=== PATIENT | female | born 1990 | race Caucasian/White ===

== ENCOUNTER → 2018-05-19 08:10 | Outpatient (CLI) | payer OTHER, MEDICAID | END | disposition home or self-care (01) | LOC: D.NM 08:10 | DX: R10.9 Unspecified abdominal pain (principal) ==

== ENCOUNTER 2019-11-09 05:05 | Day surgery (SDC) | payer MEDICAID ==
[2019-11-06 10:36] LABS: BASOPHILS 0.9 % (0-2); HEMATOCRIT 41.1 % (36.0-48.0); IMMATURE GRANULOCYTES 0.3 % (0-5); LYMPHOCYTES 19.2 % (15-50); MCH 31.9 pg (26.0-34.0); MCHC 34.1 g/dL (31.0-37.0); MCV 93.6 fL (80.0-100.0); MEAN PLATELET VOLUME 9.6 fL (7.4-10.4); MONOCYTES 8.2 % (2-11); NEUTROPHILS 67.4 % (40-80); PLATELET COUNT 265 10x3/uL (130-400); RBC 4.39 10x6/uL (4.00-5.40); RDW 12.9 % (11.5-14.5); WBC 6.5 10x3/uL (4.8-10.8)
[2019-11-06 10:42] LABS: CALC OSMOLALITY 275 mosm/kg (275-300); CALCIUM 9.7 mg/dL (8.5-10.1); CARBON DIOXIDE 28.3 mmol/L (21.0-32.0); CHLORIDE - SERUM 105 mmol/L (98-107); CREATININE - SERUM 0.6 mg/dL (0.6-1.3); GLUCOSE 96 mg/dL (74-106); POTASSIUM - SERUM 4.1 mmol/L (3.5-5.1); SODIUM 139 mmol/L (136-145); UREA NITROGEN 8 mg/dL (7-18); eGFR NON AFRICAN AMERICAN > 90 mL/min (90-120)
[2019-11-09] VITALS (9 sets, daily range): BP systolic 100–136; BP diastolic 58–86; Ht 160 cm; Wt 83.6 kg
[~2019-11-09] VITALS: Ht 160 cm; Wt 83.6 kg
[2019-11-09 06:02] LABS: HCG URINE NEGATIVE (NEGATIVE)
--- NOTE | 2019-11-09 09:01 | NUR ---
LIZZ REF [id number] LOT# [id number] EXP 09/28/2023
--- NOTE | 2019-11-09 10:18 | NUR ---
pt received from legal recovery specialist. pt in stable condition. scd's on, iv placed on pump at 125ml/hr, pt c/o abd. pain 06/10. pt awake & alert. vss at this time, scant vaginal bleeding, 3 abd. incisions one in naval, one in left lower abd., & one in right lower abd, dressing dry & intact over lower abd.
--- NOTE | 2019-11-09 10:35 | NUR ---
pt awake & alert. vss at this time.
--- NOTE | 2019-11-09 10:35 | NUR ---
pt's family to room at this time. pt asking for water. pt given water to drink.
--- NOTE | 2019-11-09 10:49 | NUR ---
dilaudid 2mg iv given at this time see emar.
--- NOTE | 2019-11-09 10:55 | NUR ---
pt awake & alert. family in room w/ pt at this time.
--- NOTE | 2019-11-09 11:07 | OP ---
PATIENT NAME: KAYCE FLORES MEDICAL RECORD: [id number] :90 LOCATION:[facility] .[id number] ADMISSION DATE: SURGEON: JIMMY BUSBY MD DATE OF OPERATION: 11/09/2019 PREOPERATIVE DIAGNOSES: 1. Dysmenorrhea. 2. Dysfunctional uterine bleeding. POSTOPERATIVE DIAGNOSES: 1. Dysmenorrhea. 2. Dysfunctional uterine bleeding. 3. Severe pelvic adhesions. PROCEDURES PERFORMED: 1. Diagnostic laparoscopy. 2. Lysis of adhesions. 3. Subtotal hysterectomy. 4. Mini laparotomy. 5. Bilateral salpingectomy. PRIMARY SURGEON: Jimmy Busby MD WIG STYLIST: Garrett ASSEMBLY LINE DRIVER: Kenan Pastor ANESTHESIOLOGIST: Michael Montoya MD ANESTHESIA: General. FINDINGS: Uterus is enlarged and adhesed from the fundus to the lower segment to the anterior abdominal wall. Both ovaries have smooth capsule appearance. Tubes were unremarkable. The rest of the abdominal anatomy that are visualized is unremarkable. SPECIMENS REMOVED: 1. Uterus without cervix. 2. Bilateral tubes and segments. SPECIMEN DISPOSITION: All specimens to pathology. ESTIMATED BLOOD LOSS: Less than or equal to 125 cc. FLUIDS: 1400 cc of lactated Ringer's. URINE OUTPUT: 200 cc of clear urine. COMPLICATIONS: None. DRAINS: Laicia to gravity, discontinued in the operating room. INDICATIONS: The patient is a 29-year-old female with undesired fertility. The patient has intense pain with cycles that are impacting quality of life. The patient also suffers from dyspareunia and regular heavy menstrual flows. The OPERATIVE REPORT [id number] KAYCE FLORES patient was consented for diagnostic laparoscopy, subtotal hysterectomy. Risks and benefits of subtotal hysterectomy have been described as well as the limitations. DESCRIPTION OF PROCEDURE: After informed consent was assured, the patient was taken to the operating room where anesthetic was obtained. The patient was supine on the table and a Alicia catheter has been started. The patient was now prepped and draped. An incision was made at the umbilicus to accommodate a 5-mm trocar, which was inserted without difficulty and pneumoperitoneum developed. Accessory ports were now placed in the right and left lower quadrant of the abdomen with the patient in Trendelenburg position. With the bowel swept free of the pelvis, the right tube was elevated and using a Thunderbeat coagulation cutter, the attachment of the tube to the adnexa was compressed, coagulated, and . This dissection was carried out over the round ligament. The dense adhesions of the uterus to the abdominal wall were now taken down superiorly and inferiorly. This was performed all the way to the level of the internal os. The bladder reflection has been identified. Attention was now directed to the left side. The left tube was elevated and again the attachment of the tube to the adnexa was compressed, coagulated, and . The dissection was carried out over the round ligament and uteroovarian ligaments of the left side. The broad ligament was dissected and the vessels on the left side skeletonized. Attention was directed back anteriorly and the adhesions continued to be taken down. Once the tissues had been mobilized off the surface of the uterus and the bladder flap has been identified, the vessels of the left side were compressed, coagulated, and now . Attention was directed back to the right where the dissection of the uterus begins off the cervix. Using a reverse cone technique, the uterus was removed from the cervix starting from the right completing on the left. Once the removal of the uterus was completed, it was placed out of the visual field and the endocervical canal cauterized. Inspection of the vaginal cuff revealed some bleeding vessels at the posterior peritoneum and these were grasped and desiccated. The uterus was grasped with a tenaculum and now brought back into the lower pelvis. The pneumoperitoneum was released and a small incision was made in the center of the old Pfannenstiel scars. This incision was carried down to the underlying layer of the fascia, which was opened in the midline and extended laterally. The rectus bellies were now and the peritoneum entered. Uterus was brought to the incision and removed. The fascia was now closed with a running stitch of Vicryl. The subcutaneous tissue was inspected and found to be hemostatic. Reestablishment of the pneumoperitoneum and with the patient back in Trendelenburg position, the operative field was visualized and covered with Mark. The pneumoperitoneum was released as the trocars were removed. All sites closed with a subcuticular stitch. Sponge, lap, needle counts were correct times 2. TRANSINT:[id number] Voice Confirmation ID: [id number] DOCUMENT ID: [id number] JIMMY BUSBY MD at 1100 CC: [id number] DICTATION DATE: 11/09/19927 EQUIPMENT ENGINEERING TECHNICIAN: 11/09/1950 [facility] [address] [facility] [place]
--- NOTE | 2019-11-09 11:15 | NUR ---
DR. BUSBY IN ROOM W/ PT.
--- NOTE | 2019-11-09 11:25 | NUR ---
PT O2 SATS 93-94% PT PLACED ON 2L OF 02 AT THIS TIME. O2 SATS 965 AFTER BEING PLACED ON NC AT 2L.
--- NOTE | 2019-11-09 11:30 | NUR ---
DR. BUSBY ORDERED IV MAYBE SALINE LOCKED AT THIS TIME. PT'S IV SL AT THIS TIME.
--- NOTE | 2019-11-09 11:30 | NUR ---
DR. BUSBY CALLED RN ADVISED OF [facility]. NEW ORDER FROM DR. BUSBY GIVE 4MG OF ZOFRAN.
--- NOTE | 2019-11-09 11:42 | NUR ---
PT C/O OF NAUSEA. ZOFRAN 4MG GIVEN.
--- NOTE | 2019-11-09 13:00 | NUR ---
PT REQUEST TO GET OUT OF BED AT THIS TIME. PT AMBULATED TO RR W/ STEADY GAIT & ABLE TO VOID W/O DIFFICULTY.
--- NOTE | 2019-11-09 13:05 | NUR ---
PT WALKING IN ALANIZ W/ STEADY GAIT. PT STATED PAIN IS A 2/10 "TOLERABLE."
--- NOTE | 2019-11-09 13:35 | NUR ---
PT SITTING UP ON EDGE OF BED EATING JELLO. PT STATES "I WANT TO GO HOME. i FEEL GOOD." PT ADVISED RN WILL NOTIFIED DR. BUSBY. PT VOICES UNDERSTANDING.
--- NOTE | 2019-11-09 13:50 | NUR ---
DR. BUSBY NOTIFIED OF PT'S DESIRE TO BE D/C'ED. VERBAL ORDER MAY D/C PT HOME AT THIS TIME.
--- NOTE | 2019-11-09 14:47 | NUR ---
PT C/O ABD. PAIN PAIN MEDS GIVEN SEE EMAR.
--- NOTE | 2019-11-09 14:50 | NUR ---
WRITTEN & VERBAL D/C INSTRUCTIONS REVIEWED W/ PT. PT VOICES UNDERSTNADING OF ALL INSTRUCTIONS, MEDICATIONS, RX'S GIVEN TO PT AT THIS TIME. PT STATES F/U W/ DR. BUSBY 11/26 @7789.
--- NOTE | 2019-11-09 15:05 | NUR ---
PT D/C'ED VIA WHEELCHAIR IN STABLE CONDITION W/ NO S/S OF DISTRESS. PT'S SO TAKING PT HOME.
== END 2019-11-09 15:05 | disposition home or self-care (01) ==
LOC: D.OPS 05:05 → D.PAN 07:00 → D.OPS 07:00 → D.LD 10:07 → D.OPS 15:05
PROVIDERS: ATTEND Obstetrics & Gynecology
DX: N94.6 Dysmenorrhea, unspecified (principal); N93.8 Other specified abnormal uterine and vaginal bleeding; N73.6 Female pelvic peritoneal adhesions (postinfective); N93.9 Abnormal uterine and vaginal bleeding, unspecified; R10.2 Pelvic and perineal pain; N80.3 Endometriosis of pelvic peritoneum